=== PATIENT | male | born 1935 | race African-American/Black ===

== ENCOUNTER → 2016-11-29 | Outpatient (CLI) | payer OTHER ==
--- NOTE | ~2016-11-29 | CT114 ---
[facility] A Service of [facility] & [facility] RADIOLOGY TEXT RESULTS PATIENT: DELIA GONZALEZ [facility] UNIT #: [id number] AGE: [address]: Anthony Lunsford MD SEX: M ORDER DR: [id number] [facility] [address] [place], [place] [address] [id number] O MR#: [id number] Acc #: [id number] NAME: DELIA GONZALEZ : 1935 SEX: M STUDY DATE/TIME: 11/29/2016 8:24 UNIT: [facility] ROOM: STUDY DESCRIPTION: CT Soft Tissue Neck W Cont Attending Physician: Anthony Lunsford M.D. Referring Physician: Anthony Lunsford M.D. Ordering Physician: Anthony Lunsford M.D. Primary Care Physician: Arun Dejesus M.D. MEDICAL IMAGING REPORT This report is preliminary unless electronic signature is present EXAM Neck CT with contrast HISTORY Right neck swelling for the past 2 months with a previous history of neck cancer. Difficulty swallowing noted as well. TECHNIQUE Axial imaging was obtained from the skull base to the upper mediastinum with contrast. 100 mL of Isovue was used. Comparison is made to previous scan from 12/05/2014. This CT exam was performed with one or more of the following radiation dose reduction techniques: automatic exposure control, adjustment of mA and/or kV according to patient size, and iterative reconstruction FINDINGS The skull base and parapharyngeal spaces as well as pharyngeal mucosal surfaces have a normal appearance. The parotid glands are symmetric. 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 A Gel-Cap marker was placed at the site of patient's symptoms. No suspicious masses are seen. There is no evidence of adenopathy or inflammatory change. There is a small submental lymph node on the right that is stable since the previous scan and likely reactive. No supraclavicular masses are seen. Bilateral apical fibrosis and volume loss is noted and appears similar to the previous exam. No upper mediastinal adenopathy is noted. IMPRESSION Status post right-sided neck dissection. No evidence of recurrent mass lesion, adenopathy or inflammatory change. No changes are noted since the previous scan in 2014. [facility] A Service of [facility] & [facility] RADIOLOGY TEXT RESULTS PATIENT: DELIA GONZALEZ LOCATION: [facility] : 35 UNIT #: [id number] AGE: [address]: Anthony Lunsford MD SEX: M ORDER DR: Dictated by... Rafa Alonso M.D. THIS IS AN ELECTRONICALLY VERIFIED REPORT Rafa Alonso M.D. at 11/29/2016 2:27 PM JOHANA/travis TD: 11/29/2016 13:41 JOB #: [id number] MEDICAL IMAGING REPORT Page 1 of 1 COPY
[2016-11-29 08:20] LABS: POC - CREATININE 1.09 mg/dL (0.64-1.27); POC - GFR >60.0 mL/min (>60)
== END | disposition home or self-care (01) ==
LOC: CCAT 07:40 → EDBD 08:00 → CCAT 08:00
PROVIDERS: Radiology Radiation Oncology
DX: R22.1 Localized swelling, mass and lump, neck (principal); Z85.89 Personal history of malignant neoplasm of other organs and systems; Z98.890 Other specified postprocedural states
CPT/HCPCS: 70491; 82565; Q9967

== ENCOUNTER → 2016-12-18 | Outpatient (CLI) | payer OTHER | END | disposition home or self-care (01) | LOC: CRAD 10:00 | DX: R22.1 Localized swelling, mass and lump, neck (principal); Z85.818 Personal history of malignant neoplasm of other sites of lip, oral cavity, and pharynx | CPT/HCPCS: 74230; 92526; G8996-GN; G8997-GN; G8998-GN ==